=== PATIENT | female | born 1960 | race Caucasian/White ===

== ENCOUNTER → 2024-03-16 | Outpatient (CLI) | payer MEDICARE, MEDICAID, SELFPAY ==
--- NOTE | 2024-03-16 15:14 | XR_ITS ---
Examination: Shoulder,right, 3 views Technique: Shoulder AP internal rotation, AP external rotation, Y view shoulder, 3 views Exam date and time :March 16, 2024 1517 hours INDICATIONS: Patient fell today with injury to the shoulder, shoulder pain. FINDINGS: Prominent osteopenia Moderate narrowing glenohumeral joint No fracture or shoulder dislocation IMPRESSION: No fracture or shoulder dislocation
== END | disposition home or self-care (01) ==
LOC: CDIM 14:57
PROVIDERS: PCP Family Medicine; Referring Provider Nurse Practitioner; Visit Provider Nurse Practitioner
DX: S49.91XA Unspecified injury of right shoulder and upper arm, initial encounter (principal); W19.XXXA Unspecified fall, initial encounter
CPT/HCPCS: 73030

== ENCOUNTER → 2024-05-24 | Outpatient (CLI) | payer MEDICARE, MEDICAID, SELFPAY ==
--- NOTE | 2024-05-24 10:30 | XR_ITS ---
MRI shoulder, right, without contrast. Date and time: May 24, 2024 1124 hours INDICATIONS: Injury to the shoulder 18 months ago with shoulder pain joint clicking stiffness Technique: Multiple axial, sagittal and coronal sections of the shoulder have been obtained. Siemens high-resolution 1.5 Donna MRI scanner is utilized. Axial fat-suppressed sections, TR 2350, TE 18 T2-weighted coronal fat-saturated images, TR 3500, TE 7100 T1-weighted coronal images, TR 500, TE 15 T2-weighted sagittal fat-saturated images, TR 3500, TE 57 T1-weighted sagittal sections, TR 504, TE 13. Findings: Supraspinatus tendon insertion is abnormal, 15 mm full-thickness tear. Infraspinatus tendon insertion is intact. Subscapularis insertion is intact. Subscapularis bursa is seen. Long head of the biceps is in the bicipital groove. No definite tear of the biceps superior labral anchor is seen. Retraction of the musculotendinous junction of the rotator cuff is not seen . Tendinosis pattern is moderate. Distance between the acromium and humeral head is 3 mm Atrophy of the supraspinatus muscle is moderate. Atrophy of the infraspinatus muscle is mild. Sagittal sections demonstrate a horizontal acromion. Acromioclavicular joint demonstrates mild osteoarthritis . Osacromiale is not identified. Labral margins intact. Bony glenoid fossa on the sagittal sections does not demonstrate osseous defect. Occult fracture or area of avascular necrosis is not seen. Acromioclavicular joint separation is not visible. Defect in the posterolateral margin of the humeral head is not seen Impression: 15 mm full-thickness tear supraspinatous
== END | disposition home or self-care (01) ==
LOC: SMRI 10:13
PROVIDERS: PCP Nurse Practitioner; Referring Provider Nurse Practitioner; Visit Provider Nurse Practitioner
DX: S46.011A Strain of muscle(s) and tendon(s) of the rotator cuff of right shoulder, initial encounter (principal); X58.XXXA Exposure to other specified factors, initial encounter
CPT/HCPCS: 73221

== ENCOUNTER → 2024-12-20 | Outpatient (CLI) | payer MEDICARE, MEDICAID, SELFPAY ==
--- NOTE | 2024-12-20 | XR_ITS ---
Examination: Tibia-Fibula, left , 2 views Technique: Tibia-fibula AP lateral 2 views Date and time of exam: December 20, 2024 1312 hours INDICATIONS: Left lower leg pain beginning one week ago. FINDINGS: Moderate osteopenia. Healed fracture distal fibular shaft. No acute fracture. No cortical bone destruction IMPRESSION: No acute fracture
--- NOTE | 2024-12-20 15:31 | XR_ITS ---
Examination: Duplex scan of the lower extremity, unilateral left complete Date and time of exam: December,, 1617 hrs. Indications: Left leg pain worse beginning 3 weeks ago after injury to the leg Technique: Duplex scan of the extremity veins using B-mode/grayscale imaging and Doppler spectral analysis and color flow Attention is directed to internal echogenicity, compression and augmentation involving these veins, color flow assessment, spectral analysis Findings: Major deep venous structures in the extremity demonstrate normal course and caliber. There is no evidence of deep vein thrombosis. Normal color flow and spectral analysis Impression: Negative for DVT..
== END | disposition home or self-care (01) ==
PROVIDERS: PCP Nurse Practitioner Family; Referring Provider Nurse Practitioner Family; Visit Provider Nurse Practitioner Family
DX: S89.92XA Unspecified injury of left lower leg, initial encounter (principal); X58.XXXA Exposure to other specified factors, initial encounter
CPT/HCPCS: 73590; 93971

== ENCOUNTER → 2025-03-07 | Outpatient (CLI) | payer MEDICARE, MEDICAID, SELFPAY ==
--- NOTE | 2025-03-07 12:30 | XR_ITS ---
Examination: MRI left ankle without contrast Date and time of exam: March 07, 2025, 1312 hours INDICATIONS: Patient fell 3 months ago with injury to the ankle, ankle pain joint clicking and stiffness swelling instability Technique: Multiple MRI axial and sagittal sections left ankle Sagittal T2-weighted images, TR 3500, TE 118 T1 weighted transverse sections, TR 688 T8.5, T2-weighted sagittal sections T1 weighted sagittal sections TR 621, TE 30 T2 axial sections, TR 4, 190, TE 84. Findings: Marked marrow edema involving the mid cuneiform Thickening of the Achilles tendon Moderate plantar fasciitis Mild sinus Tarsi syndrome Small ankle effusion Intact anterior posterior inferior tibiofibular ligaments Mild strain anterior posterior talofibular ligaments Tendinitis flexor hallucis longus tendon Extensor tendons intact IMPRESSION: Marked marrow edema involving the mid cuneiform, recommend CT scan ankle follow-up to exclude occult fractures of the mid cuneiform
--- NOTE | 2025-03-07 13:00 | XR_ITS ---
Examination: MRI left foot, without contrast Date and time of exam: March 07, 2024, 1312 hours INDICATIONS: Patient fell 3 months ago with injury to the foot, foot pain Technique: Multiple axial sagittal and coronal images of the left foot have been obtained with the Siemens high-resolution 1.5 Donna MRI scanner. Images obtained include T2-weighted fat-suppressed sagittal sections, TR 3500, TE 46, T2 weighted coronal fat suppressed images, TR 3050, TE 84, T2-weighted transverse fat suppressed images, TR 3260, TE 63, proton density transverse images, TR 4720 TE 46, and T1 weighted coronal images, TR 560, TE 13. Findings: Thickening of the Achilles tendon Mild to moderate plantar fasciitis Mild sinus Tarsi syndrome Severe marrow edema involving the mid cuneiform Mild tendinitis flexor hallucis longus tendon No soft tissue edema Mild sprain anterior posterior talofibular ligaments IMPRESSION: Recommend CT scan ankle follow-up to exclude occult fractures involving the mid cuneiform
== END | disposition home or self-care (01) ==
PROVIDERS: PCP Nurse Practitioner; Referring Provider Nurse Practitioner Family; Visit Provider Nurse Practitioner Family
DX: S93.402A Sprain of unspecified ligament of left ankle, initial encounter (principal); S99.922A Unspecified injury of left foot, initial encounter; W19.XXXA Unspecified fall, initial encounter; M25.472 Effusion, left ankle
CPT/HCPCS: 73718; 73721

== ENCOUNTER → 2025-03-12 | Outpatient (CLI) | payer MEDICARE, MEDICAID, SELFPAY ==
--- NOTE | 2025-03-12 07:45 | XR_ITS ---
Exam: MRI knee without contrast, left Date and time of exam: March 12, 2025, 0738 hours, comparison November 18, 2022 INDICATIONS: Medial anterior left knee pain and instability joint clicking and popping swelling for months after a fall with injury to the knee Technique: Multiple axial, coronal, and sagittal sections on the knee have been obtained. T2-Weighted sagittal, fat-suppressed images, TR 3,500, TE 62, T2 weighted coronal fat-saturated images, TR 3,500, TE 62 Proton density sagittal sections, TR 1800, TE 31. T-1 weighted coronal images, TR 524, TE 13.0 Findings: Medial meniscus anterior horn intact. Medial meniscus, body large horizontal linear tear communicating inner margin. Posterior horn medial meniscus large horizontal linear tear communicating intermargin. Lateral meniscus anterior horn is intact Lateral meniscus, body is intact Posterior horn lateral meniscus is intact Anterior cruciate ligament moderate sprain Posterior cruciate ligament appears intact. Knee effusion is small. Quadriceps and patellar tendons appear intact. There is no evidence of tendinosis. Inflammatory change or fracture of Hoffa's fat pad is not seen. Medial patellar facet demonstrates moderate thinning. Lateral patellar facet cartilage demonstrates moderate thinning. Trochlear cartilage demonstrates moderate thinning. Marrow signal increased in the medial tibial metaphyseal region. Medial collateral ligament appears intact. No meniscocapsular separation is seen. Illiotibial band and fibular collateral ligament are intact. Biceps femoris tendons appear intact. Medial femoral condylar articular cartilage demonstrates significant thinning. Lateral femoral condylar articular cartilage demonstrates significant thinning. Tibial plateau cartilage demonstrates significant thinning. Impression: Large horizontal linear tears body and posterior horn medial meniscus Moderate sprain anterior cruciate ligament
== END | disposition home or self-care (01) ==
LOC: SMRI 07:09
PROVIDERS: PCP Nurse Practitioner Family; Referring Provider Nurse Practitioner Family; Visit Provider Nurse Practitioner Family
DX: S83.242A Other tear of medial meniscus, current injury, left knee, initial encounter (principal); S83.512A Sprain of anterior cruciate ligament of left knee, initial encounter; W19.XXXA Unspecified fall, initial encounter
CPT/HCPCS: 73721